=== PATIENT | female | born 1955 | race Caucasian/White ===

== ENCOUNTER 2017-09-02 10:40 | Outpatient (CLI) | payer BC ==
--- NOTE | 2017-09-02 12:57 | ULT ---
THYROID ULTRASOUND: INDICATIONS: Thyroid nodule followup. COMPARISON: Prior thyroid ultrasound from [facility], dated 09/23/2016. FINDINGS: Again seen is prominent heterogeneity of the thyroid gland. The right thyroid lobe measures 5.1 x 1. 6 x 1.9 cm. The left thyroid lobe measures 5.2 x 1.8 x 2.1 cm. The thyroid isthmus measures 0.5 cm. There is a stable 4 mm cyst within the mid to upper pole, left thyroid gland. A solid, well circum scribed, wider than tall, homogeneously hypoechoic nodule within the mid to inferior pole of the left thyroid gland has slightly enlarged from the comparison exam, now measuring 2.1 x 0.8 x 1.8 cm, wher e previously it measured 1.5 x 1.8 x 0.6 cm. There was an additional smaller hypoechoic nodule withi n the left mid thyroid gland seen, measuring 6 mm, on the prior examination. It is not definitely de monstrated on the current study. IMPRESSION: 1. TI-RADS category 4 lesion involving the mid to lower left thyroid gland. Fine needle aspiration sampling is recommended. 2. A 4 mm cystic lesion within the mid to upper pole, left thyroid gland, is benign. POS: [facility]
== END 2017-09-02 10:41 | disposition home or self-care (01) ==
LOC: SCSULT 10:40
PROVIDERS: ATTEND Otolaryngology Plastic Surgery within the Head & Neck
DX: E03.9 Hypothyroidism, unspecified (principal); E04.9 Nontoxic goiter, unspecified; E07.89 Other specified disorders of thyroid
CPT/HCPCS: 76536

== ENCOUNTER 2017-10-07 15:34 | Outpatient (CLI) | payer BC | END 2017-10-07 15:35 | disposition home or self-care (01) | LOC: BICMAMMO 15:34 | PROVIDERS: ATTEND Family Medicine | DX: Z12.31 Encounter for screening mammogram for malignant neoplasm of breast (principal); Z80.3 Family history of malignant neoplasm of breast | CPT/HCPCS: 77063; 77067 ==

== ENCOUNTER 2018-10-12 13:53 | Outpatient (CLI) | payer MEDICARE, BC ==
--- NOTE | 2018-10-12 16:14 | MMO ---
Bilateral MAMMO Bilat Screen [facility]. CLINICAL HISTORY: Patient is 63 years old and is seen for screening. The patient has the following family history of breast cancer: great aunt. The patient has no personal history of cancer. VIEWS: The views performed were: bilateral craniocaudal with tomosynthesis and bilateral mediolateral oblique with tomosynthesis. FILMS COMPARED: The present examination has been compared to prior imaging studies performed at [facility] on 07/31/2014, 08/13/2015, 09/11/2016 and 10/07/2017. MAMMOGRAM FINDINGS: There are scattered fibroglandular densities. There are no suspicious masses, suspicious calcifications, or new areas of architectural distortion. IMPRESSION: THERE IS NO MAMMOGRAPHIC EVIDENCE OF MALIGNANCY. A ROUTINE FOLLOW-UP MAMMOGRAM IN 1 YEAR IS RECOMMENDED. THE RESULTS OF THIS EXAM WERE SENT TO THE PATIENT. ACR BI-RADS Category 1 - Negative MAMMOGRAPHY NOTE: 1. A negative mammogram report should not delay a biopsy if a dominant of clinically suspicious mass is present. 2. Approximately 10% to 15% of breast cancers are not detected by mammography. 3. Adenosis and dense breasts may obscure an underlying neoplasm. Reported by: JORGE AGUILAR MD Electonically Signed: [id number]
== END 2018-10-12 13:54 | disposition home or self-care (01) ==
LOC: BICMAMMO 13:53
PROVIDERS: ATTEND Family Medicine
DX: Z12.31 Encounter for screening mammogram for malignant neoplasm of breast (principal); Z80.3 Family history of malignant neoplasm of breast
CPT/HCPCS: 77063; 77067

== ENCOUNTER 2019-01-05 09:22 | Outpatient (CLI) | payer MEDICARE, BC ==
--- NOTE | 2019-01-05 11:14 | ULT ---
TRANSABDOMINAL TRANSVAGINAL PELVIC ULTRASOUND DATE:: 01/05/2019 12:00 AM CLINICAL HISTORY: History of pelvic and perineal pain; history of hysterectomy. COMPARISON: None. TECHNIQUE: Grayscale, color Doppler images were obtained of the pelvis see a transabdominal transvagi nal approach Uterus: Uterus is surgically absent. Ovaries: Ovaries were not visualized. Cul-de-sac: No free fluid IMPRESSION: No free fluid or lymphadenopathy demonstrated.
--- NOTE | 2019-01-05 11:37 | BD ---
DEXA BONE DENSITY STUDY: Date: 01/05/19 HISTORY: 63-year-old postmenopausal female for screening for osteoporosis. COMPARISON: None. FINDINGS: Lumbar Spine: BMD (g/cm2) L1 0.879 T-Score: -1.0 L2 0.964 T-Score: -0.6 L3 1.021 T-Score: -0.6 L4 0.982 T-Score: -0.7 L1-L4 0.967 T-Score: -0.7 Femoral Neck: 0.690 T-Score: -1.4 Total Femur: 0.944 T-Score: 0.0 IMPRESSION: Osteopenia. This patient has a 10 year WHO fracture risk for a major osteoporotic fracture of 8.5% an d for a hip fracture of 0.8%. POS: [facility]
== END 2019-01-05 09:23 | disposition home or self-care (01) ==
LOC: BICMAMMO 09:22
PROVIDERS: ATTEND Obstetrics & Gynecology Female Pelvic Medicine and Reconstructive Surgery
DX: Z13.820 Encounter for screening for osteoporosis (principal); R10.2 Pelvic and perineal pain; M85.80 Other specified disorders of bone density and structure, unspecified site
CPT/HCPCS: 76856; 77080

== ENCOUNTER 2019-08-08 09:45 | Outpatient (CLI) | payer MEDICARE, BC ==
--- NOTE | 2019-08-08 10:36 | MRI ---
EXAM: MRI lumbar spine without contrast HISTORY: Back pain COMPARISON: None TECHNIQUE: Multiple planar multisequence MR images were obtained of the lumbar spine without contrast . FINDINGS: The vertebral bodies and intervertebral discs demonstrate normal height and alignment without fractur e or subluxation. Cysts are seen within the left kidney. The paraspinal soft tissues are unremarkable. No marrow signal abnormality is present. The conus medullaris terminates normally at T12/L1. T12/L1: No significant posterior bulge or protrusion. No posterior facet arthrosis. No central brian l stenosis. No neural foraminal stenosis L1/2: No significant posterior bulge or protrusion. No posterior facet arthrosis. No central canal stenosis. No neural foraminal stenosis L2/3: No significant posterior bulge or protrusion. No posterior facet arthrosis. No central canal stenosis. No neural foraminal stenosis L3/4: Minimal generalized concentric disc bulge. No posterior facet arthrosis. No central canal leif nosis. Mild left neural foraminal stenosis L4/5: Minimal generalized concentric disc bulge. Mild bilateral posterior facet arthrosis. Mild christina tral canal stenosis. Mild left neural foraminal stenosis L5/S1: No significant posterior bulge or protrusion. Moderate right posterior facet arthrosis. No c entral canal stenosis. Mild to moderate right neural foraminal stenosis IMPRESSION: Degenerative changes of lumbar spine as above
== END 2019-08-08 09:46 | disposition home or self-care (01) ==
LOC: TBSIIMAG 09:45
PROVIDERS: ATTEND Neurological Surgery
DX: M47.16 Other spondylosis with myelopathy, lumbar region (principal)
CPT/HCPCS: 72148

== ENCOUNTER 2019-08-18 12:39 | Outpatient (CLI) | payer MEDICARE, BC ==
--- NOTE | 2019-08-18 15:44 | MRI ---
MRI CERVICAL SPINE WITHOUT CONTRAST: 08/18/19 INDICATIONS: Cervical stenosis. Neck pain. Bilateral arm pain and numbness. Comparison made to MRI cervical spine dated 10/31/15. FINDINGS: Cervical vertebrae maintain height. Degenerative disc changes are noted with loss of disc space and d egenerative spurring at C4-5, C5-6 and C6-7. C2-3 and C3-4 disc spaces are relatively well preserved. There is an anterolisthesis at C3-4 which appears stable from prior exam measured at 2 to 3 mm. Find ings at each level are noted. C2-3: Mild spondylosis. This mildly effaces the anterior subarachnoid space. No central canal or fora flaco stenosis. C3-4: Mild disc bulge and spondylosis efface the anterior subarachnoid space. No cord impingement. No central canal or foraminal stenosis. C4-5: Slight anterolisthesis with posterior disc bulge and spondylosis effacing the anterior subarach noid space. No significant cord impingement. Mild right foraminal narrowing due to uncinate hypertrop hy. C5-6: Mild disc and spondylosis efface the anterior subarachnoid space. No significant cord impingeme nt. Left foraminal stenosis secondary to facet and uncinate hypertrophy. C6-7: Mild disc bulge and spondylosis flatten the thecal sac. Anterior subarachnoid space is preserve d. No evidence of significant foraminal stenosis. Cervical cord signal appears normally maintained. IMPRESSION: Degenerative disc changes as described above. Mild posterior spondylosis at multiple levels without significant cord compression or central canal stenosis. No significant change from 2016 exam. POS: [facility]
== END 2019-08-18 12:40 | disposition home or self-care (01) ==
LOC: TBSIIMAG 12:39
PROVIDERS: ATTEND Neurological Surgery
DX: M48.02 Spinal stenosis, cervical region (principal); M50.321 Other cervical disc degeneration at C4-C5 level; M47.812 Spondylosis without myelopathy or radiculopathy, cervical region
CPT/HCPCS: 72141

== ENCOUNTER 2019-10-26 10:43 | Outpatient (CLI) | payer MEDICARE, BC ==
--- NOTE | 2019-10-26 13:09 | MMO ---
Bilateral MAMMO Bilat Screen [facility]. CLINICAL HISTORY: Patient is 64 years old and is seen for screening. The patient has the following family history of breast cancer: great aunt. The patient has no personal history of cancer. VIEWS: The views performed were: bilateral craniocaudal with tomosynthesis and bilateral mediolateral oblique with tomosynthesis. FILMS COMPARED: The present examination has been compared to prior imaging studies performed at [facility] on 08/13/2015, 09/11/2016, 10/07/2017 and 10/12/2018. This study has been interpreted with the assistance of computer-aided detection. MAMMOGRAM FINDINGS: There are scattered fibroglandular densities. There are no suspicious masses, suspicious calcifications, or new areas of architectural distortion. IMPRESSION: THERE IS NO MAMMOGRAPHIC EVIDENCE OF MALIGNANCY. A ROUTINE FOLLOW-UP MAMMOGRAM IN 1 YEAR IS RECOMMENDED. THE RESULTS OF THIS EXAM WERE SENT TO THE PATIENT. ACR BI-RADS Category 1 - Negative MAMMOGRAPHY NOTE: 1. A negative mammogram report should not delay a biopsy if a dominant of clinically suspicious mass is present. 2. Approximately 10% to 15% of breast cancers are not detected by mammography. 3. Adenosis and dense breasts may obscure an underlying neoplasm. Reported by: JORGE AGUILAR MD Electonically Signed: [id number]
== END 2019-10-26 10:44 | disposition home or self-care (01) ==
LOC: BICMAMMO 10:43
PROVIDERS: ATTEND Family Medicine
DX: Z12.31 Encounter for screening mammogram for malignant neoplasm of breast (principal); Z80.3 Family history of malignant neoplasm of breast
CPT/HCPCS: 77063; 77067

== ENCOUNTER 2020-06-20 10:04 | Outpatient (CLI) | payer OTHER | END 2020-06-20 10:05 | disposition home or self-care (01) | LOC: BICCT 10:04 | PROVIDERS: ATTEND Family Medicine | DX: Z71.89 Other specified counseling (principal) | CPT/HCPCS: 75571 ==

== ENCOUNTER 2020-11-23 12:32 | Outpatient (CLI) | payer MEDICARE, BC | END 2020-11-23 12:33 | disposition home or self-care (01) | LOC: BICMAMMO 12:32 | PROVIDERS: ATTEND Obstetrics & Gynecology | DX: Z12.31 Encounter for screening mammogram for malignant neoplasm of breast (principal); Z80.3 Family history of malignant neoplasm of breast | CPT/HCPCS: 77063; 77067 ==

== ENCOUNTER 2022-01-30 11:36 | Outpatient (CLI) | payer MEDICARE, BC | END 2022-01-30 11:37 | disposition home or self-care (01) | LOC: BICMAMMO 11:36 | PROVIDERS: ATTEND Obstetrics & Gynecology | DX: Z12.31 Encounter for screening mammogram for malignant neoplasm of breast (principal); Z80.3 Family history of malignant neoplasm of breast | CPT/HCPCS: 77063; 77067 ==

== ENCOUNTER 2022-05-07 15:16 | Outpatient (CLI) | payer MEDICARE, BC | END 2022-05-07 15:17 | disposition home or self-care (01) | LOC: BICMAMMO 15:16 | PROVIDERS: ATTEND Family Medicine | DX: Z13.820 Encounter for screening for osteoporosis (principal); Z78.0 Asymptomatic menopausal state; M85.89 Other specified disorders of bone density and structure, multiple sites | CPT/HCPCS: 77080 ==

== ENCOUNTER 2023-04-16 15:11 | Outpatient (CLI) | payer MEDICARE | END 2023-04-16 15:12 | disposition home or self-care (01) | LOC: BICMAMMO 15:11 | PROVIDERS: ATTEND Obstetrics & Gynecology | DX: Z12.31 Encounter for screening mammogram for malignant neoplasm of breast (principal); Z80.3 Family history of malignant neoplasm of breast | CPT/HCPCS: 77063; 77067 ==